=== PATIENT | male | born 1965 | race Caucasian/White ===

== ENCOUNTER → 2021-08-07 | Day surgery (SDC) | payer MEDICARE ==
[~2021-08-07] MED LIST: BACLOFEN10 MG PO; CELEBREX 200MG200 MG PO; DEPO-TESTO200 MG/1 M IM; HYDROCODON-ACE1 EAC6 PO; LOSARTAN-HCTZ1 EAC1 PO; PRAVASTATIN SOD20 MG PO; TOPROL XL50 MG PO; VITAMIN D21250 MCG PO
== END | disposition home or self-care (01) ==
LOC: OR 06:24
PROVIDERS: Internal Medicine Gastroenterology
PROC: 0DBN8ZX Excision of Sigmoid Colon, Via Natural or Artificial Opening Endoscopic, Diagnostic (ICD-10-PCS; principal; 2021-08-07 09:10)
DX: Z12.11 Encounter for screening for malignant neoplasm of colon (principal); D12.5 Benign neoplasm of sigmoid colon; K64.1 Second degree hemorrhoids; I10 Essential (primary) hypertension; E66.8 Other obesity; Z68.34 Body mass index [BMI] 34.0-34.9, adult; Z20.822 Contact with and (suspected) exposure to COVID-19; Z86.010 Personal history of colon polyps; Z79.82 Long term (current) use of aspirin; Z79.899 Other long term (current) drug therapy
CPT/HCPCS: J2704; J3010; J7040